=== PATIENT | male | born 1965 | race Two or more races ===

== ENCOUNTER 2016-04-21 15:26 | Emergency (ER) | payer SELFPAY ==
[2016-04-21 15:38] VITALS: TEMP 97.6; BMI 25.0
--- NOTE | 2016-04-21 16:16 | DIRPT ---
CLINICAL DATA: Cough and shortness of breath for 2 weeks. EXAM: CHEST - 2 VIEW COMPARISON: One-view chest x-ray 02/23/2016. FINDINGS: The heart size is normal. There is mild hyperexpansion of the lungs. Arm positioning obscures the superior mediastinum. The visualized soft tissues and bony thorax are unremarkable. IMPRESSION: No acute cardiopulmonary disease. Electronically Signed By: Pawan Rendon M.D. On: 04/21/2016 16:14
[2016-04-21] MEDS ORDERED: Albuterol/Ipratropium Neb 3 ML NEB NEB ONE (16:45)
[2016-04-21] MEDS ORDERED: TERBUTALINE 1 MG/ML AMPULE SQ ONE (16:45)
[2016-04-21] MEDS ORDERED: FLUTICASONE/SALMETEROL 250/50 DISKUS INH STA (17:00)
--- NOTE | 2016-04-21 17:46 | EDPRACDOC ---
- General Information Chief Complaint: Adult Asthma Stated Complaint: TROUBLE BREATHING HX ASTHMA Time Seen by Provider: 04/21/16 16:45 Information Source: Patient Home Medications: Home Medications Fluticasone Propionate [Flonase Nasal Patterson] 1 spray DG DAILY #1 each 10/18/15 Albuterol Sulfate [Proair Hfa] 2 puff INH Q2H PRN #1 inhaler 11/23/15 Nebulizer [Erapid Nebulizer] 1 item NEB DAILY 11/23/15 Albuterol Sulfate Nebs [Proventil, Ventolin] 3 ml NEB Q6H 12/20/15 Albuterol Sulfate [Proair Hfa] 2 puff INH Q4 PRN #1 inhaler 03/16/16 Fexofenadine HCl [Wal-Fex Allergy] 180 mg PO DAILY 03/16/16 Fluticasone/Salmeterol [Advair 250-50] 1 puff INH BID 03/16/16 Ipratropium/Albuterol Sulfate [Combivent Respimat Inhal Patterson] 4 gm INH QID 10/23 Prednisone [Deltasone, Orasone] 20 mg PO DAILY #20 tab 03/16/16 Fluticasone/Salmeterol [Advair 500-50] 1 inh INH BID #1 inhaler 04/21/16 Prednisone [Sterapred DS 10 mg/12 day pack] 48 tab PO DIR #1 pack 04/21/16 Allergies/Adverse Reactions: Allergies Allergy/AdvReac Type Severity Reaction Status Date / Time No Known Allergies Allergy Verified 04/21/16 15:36 - History of Present Illness Onset: ONGOING HPI: PT PRESENTS TODAY WITH AOC ASTHMA. PT WELL KNOWN TO ME AND USUALLY REQUIRES TERBUTALINE INJECTIONS. PT CURRENTLY TACHYPNEIC WITH SPO2 AT 95%. NO OTHER COMPLAINTS. Shortness of Breath: Moderate Relevant History: Reports: Asthma Ear Symptoms: Reports: None SOB Worsens with: Reports: Exertion SOB Improves with: Reports: Inhaler, Rest ED Past Medical History - History Reviewed Yes Nurses notes reviewed and agree except as marked - Patient Medical History Respiratory History: Reports: Asthma Psychological History: Reports: Substance Use Disorder (patient former smoker, drinks beer). Denies: Depression Surgical History: Reports: Tonsillectomy/Adnoidectomy - Social Medical History Smoking Status: Former smoker Social History: Reports: Substance Use Disorder (patient former smoker, drinks beer) EDM Review of Systems - Review of Systems ROS Negative Except as Marked: Yes All systems reviewed and were negative except as marked Constitutional: No Symptoms Reported Ears: No Symptoms Reported Throat: No Symptoms Reported Nose: No Symptoms Reported Respiratory: Cough, Shortness of Breath, Wheezing, Asthma Cardiovascular: No Symptoms Reported Gastrointestinal: No Symptoms Reported Neurological: No Symptoms Reported Musculoskeletal: No Symptoms Reported Integumentary: No Symptoms Reported - Physical Exam Constitutional: Alert, Distress Oriented to: Time, Person, Place Last recorded Vital Signs: Last Vital Signs Temp 97.6 F 04/21/16 15:30 Pulse 93 04/21/16 17:03 Resp 24 04/21/16 17:04 BP 156/95 04/21/16 17:03 Pulse Ox 94 04/21/16 17:03 Oxygen Pulse Oxygen Saturation 94 O2 Device Room Air Oxygen Flow Rate Fraction of Inspired Oxygen ( FIO2) - HEENT Head: Normal Eye Exam: Normal Neck: Normal, Denies Pain, Midline - Respiratory/Cardiovascular Respiratory: Accessory Muscle Use, Diminished, Tachypnea, Wheezes Cardiovascular: Tachycardia - GI Palpation: Normal Tenderness: Non tender - Musculoskeletal Back: Normal Extremities: Normal - Integumentary Skin: Normal Lymphatics: Normal - Neurologic Cerebellar: Normal Mood Description: Normal Thought: Coherent Perception: Normal ED SOB MDM - Re-evaluation Re-evaluation 1 Re-evaluation Time: 18:08 Re-evaluation: PT FEELING BETTER AFTER TREATMENT. I INCREASED PTS ADVAIR TO MAX DOSE AND INCREASED PREDNISONE TAPER. PT AND GIRLFRIEND COUNSELED THAT PT NEEDS A SPECIALIST. Decision Time to Discharge: 17:46 - Departure Disposition: Home Condition: Stable Final Diagnosis: Acute asthma Instructions: Asthma (ED) Education/Counseling Given To: Patient Education/Counseling Given Regarding: Diagnosis, Treatment, Follow Up Referrals: Benedicto Montalvo MD [Primary Care Provider] - One Week Joe Serra MD [Staff Physician] - One Week Prescriptions: Fluticasone/Salmeterol [Advair 500-50] 1 inh INH BID #1 inhaler Prednisone [Sterapred DS 10 mg/12 day pack] 48 tab PO DIR #1 pack Additional Instructions: PLEASE FOLLOW UP WITH PULMONOLOGY. THIS ASTHMA IS VERY SEVERE AND NEEDS TO BE MANAGED BY A SPECIALIST. OF COURSE, RETURN TO ED FOR ANY ACUTE SYMPTOMS.
[2016-04-21] MEDS ORDERED: FLUTICASONE/SALMETEROL 500/50 DISKUS INH STA (17:48)
[2016-04-21] MEDS ORDERED: FLUTICASONE/SALMETEROL 500/50 DISKUS INH SCH (17:51)
[2016-04-21 18:07] VITALS: BP 163/110; PULSE 94
== END 2016-04-21 18:06 | disposition home or self-care (01) ==
LOC: EDMC 15:26
DX: J45.901 Unspecified asthma with (acute) exacerbation (principal)
CPT/HCPCS: 71020; 94640; 96372; 99283; J3105; J3490; J7620